=== PATIENT | female | born 1995 | race Caucasian/White ===

== ENCOUNTER 2019-01-31 18:49 | Emergency (ER) | payer OTHER ==
[2019-01-31] MEDS ORDERED: Ketorolac 60 MG/2 ML SDV IM ONE (19:23)
[2019-01-31] MEDS ORDERED: Acetaminophen/HYDROcodone 325-10 MG Tab PO ONE (19:23)
[2019-01-31] MEDS ORDERED: Cyclobenzaprine 10 MG Tab PO ONE (19:24)
--- NOTE | 2019-01-31 19:28 | EDM.PDOC ---
ED HPI GENERAL MEDICAL PROBLEM - General Chief Complaint: Back Pain or Injury Stated Complaint: SEVERE BACK PAINS Time Seen by Provider: 01/31/19 19:21 - History of Present Illness INITIAL COMMENTS - FREE TEXT/NARRATIVE: HISTORY AND PHYSICAL: History of present illness: Patient's 23-year-old white female sensory concern of upper back pain she's had similar episodes in the past the last time she had pain and spasm of this nature was related to a rib fracture she denies any direct traumas but no numbness weakness incontinence or retention bowel or bladder this is in the right paravertebral region at level of thoracic spine is been no fever chills nausea or vomiting. Review of systems: As per history of present illness and below otherwise all systems reviewed and negative. Past medical history: As per history of present illness and as reviewed below otherwise noncontributory. Surgical history: As per history of present illness and as reviewed below otherwise noncontributory. Social history: No reported history of drug or alcohol abuse. Family history: As per history of present illness and as reviewed below otherwise noncontributory. Physical exam: HEENT: Atraumatic, normocephalic, pupils reactive, negative for conjunctival pallor or scleral icterus, mucous membranes moist, throat clear, neck supple, nontender, trachea midline. Lungs: Clear to auscultation, breath sounds equal bilaterally, chest nontender. Heart: S1S2, regular, negative for clicks, rubs, or JVD. Abdomen: Soft, nondistended, nontender. Negative for masses or hepatosplenomegaly. Negative for costovertebral tenderness. Pelvis: Stable nontender. Genitourinary: Deferred. Rectal: Deferred. Extremities: Atraumatic, negative for cords or calf pain. Neurovascular unremarkable. Neuro: Awake, alert, oriented. Cranial nerves II through XII unremarkable. Cerebellum unremarkable. Motor and sensory unremarkable throughout. Exam nonfocal. Back: Patient has tenderness in the paravertebral region to palpation at the level of the upper thoracic spine is no vertebral body or point tenderness patient able [place] told back on her heels motor and sensory and deep tendon reflexes are normal Diagnostics: Deferred Therapeutics: Toradol 60 mg IM hydrocodone 10 mg by mouth Flexeril 10 mg by mouth Impression: #1 upper back pain probable thoracic myofascial etiology Definitive disposition and diagnosis as appropriate pending reevaluation and review of above. Right Back Pain Score (Numeric/FACES): 8 - Related Data Allergies Allergy/AdvReac Type Severity Reaction Status Date / Time Penicillins Allergy Other Verified 01/31/19 19:05 Home Meds: Home Meds Insulin Aspart [NovoLOG] 0 unit SQ 01/31/19 [History] Past Medical History - Past Health History Medical/Surgical History: Denies Medical/Surgical History Endocrine/Metabolic History: Reports: Diabetes, Type I - Past Surgical History HEENT Surgical History: Reports: Oral Surgery Social & Family History - Family History Family Medical History: Noncontributory - Tobacco Use Smoking Status *Q: Never Smoker - Recreational Drug Use Recreational Drug Use: No ED ROS GENERAL - Review of Systems Review Of Systems: ROS reveals no pertinent complaints other than HPI. ED EXAM, GENERAL - Physical Exam Exam: See Below (See dictation) Course - Vital Signs Last Recorded V/S: Last Vital Signs Temp Pulse 125 H 01/31/19 19:03 Resp 20 01/31/19 19:03 BP 151/115 H 01/31/19 19:03 Pulse Ox 98 01/31/19 19:03 - Orders/Labs/Meds Meds: Medications Discontinued Medications Generic Name Dose Route Start Last Admin Trade Name Freq PRN Reason Stop Dose Admin Hydrocodone Bitart/Acetaminophen 1 tab 01/31/19 19:23 [place] 325-10 Mg PO 01/31/19 19:24 ONETIME ONE Cyclobenzaprine HCl 10 mg 01/31/19 19:24 Flexeril PO 01/31/19 19:25 ONETIME ONE Ketorolac Tromethamine 60 mg 01/31/19 19:23 Toradol IM 01/31/19 19:24 ONETIME ONE Departure - Departure Time of Disposition: 19:27 Disposition: Home, Self-Care 01 Clinical Impression: Back pain, Acute thoracic myofascial strain - Discharge Information Referrals: PCP,None [Primary Care Provider] - Additional Instructions: The following information is given to patients seen in the emergency department who are being discharged to home. This information is to outline your options for follow-up care. We provide all patients seen in our emergency department with a follow-up referral. The need for follow-up, as well as the timing and circumstances, are variable depending upon the specifics of your emergency department visit. If you don't have a primary care physician on staff, we will provide you with a referral. We always advise you to contact your personal physician following an emergency department visit to inform them of the circumstance of the visit and for follow-up with them and/or the need for any referrals to a consulting specialist. The emergency department will also refer you to a specialist when appropriate. This referral assures that you have the opportunity for followup care with a specialist. All of these measure are taken in an effort to provide you with optimal care, which includes your followup. Under all circumstances we always encourage you to contact your private physician who remains a resource for coordinating your care. When calling for followup care, please make the office aware that this follow-up is from your recent emergency room visit. If for any reason you are refused follow-up, please contact the [facility] emergency department at and asked to speak to the emergency department charge nurse. [facility] [place] [id number] Diclofenac Flexeril as prescribed follow-up primary care as discussed and return as needed as discussed
== END 2019-01-31 19:54 | disposition home or self-care (01) ==
LOC: MW.ED 18:49
DX: S29.012A Strain of muscle and tendon of back wall of thorax, initial encounter (principal); E10.9 Type 1 diabetes mellitus without complications; X58.XXXA Exposure to other specified factors, initial encounter; Z88.0 Allergy status to penicillin
CPT/HCPCS: 96372; 99283; A9270; J1885